=== PATIENT | female | born 1940 | race Caucasian/White ===

== ENCOUNTER 2016-05-25 14:00 | Inpatient (IN) | payer MEDICARE, BC ==
[~2016-05-25] VITALS: Ht 162.6 cm; Wt 126.2 kg
--- NOTE | ~2016-05-25 | DS ---
PATIENT'S NAME: JENNY OBRIEN [facility] AGE: 75 Y [address] ROOM: [id number] [place] [address] LOCATION: GPCU ADMIT DATE: 05/25/2016 Discharge Summary DISCHARGE DATE: 06/06/2016 FAMILY PHYSICIAN: Jarod Alegre MD ATTENDING PHYSICIAN: Bert Valladares FINAL DIAGNOSES: 1. 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 2. Acute on chronic diastolic congestive heart failure. 3. Bilateral lower extremity cellulitis. 4. Severe pulmonary hypertension with right-sided failure. 5. Acute kidney injury on stage 3 chronic kidney disease. 6. Atrial fibrillation. 7. Left leg ulcers currently in unna boot. 8. Nocturnal hypoxia. Question if she has untreated obstructive sleep apnea. 9. Long-term anticoagulation. 10. Elevated troponins. HISTORY OF PRESENT ILLNESS: Please see the history and physical done by Dr. Valladares regarding the details of admission. LABORATORY DATA: On admission pH was 7.18, pCO2 98, pO2 88 on 4 L 94% O2 saturation. The morning on 06/05/2016, pH 7.42, pCO2 54, pO2 59, O2 saturation 91% on room air. Sodium on admission was 146, remained stable and on discharge 137. Potassium on admission was 4.6 and at discharge 4.2, the lowest it got was 3.3. BUN on admission was 38, the highest it got was 40, at discharge 59. Creatinine on admission was 1.8, the highest it got was 1.9, most prior to discharge, it was 1.4. On admission, alkaline phosphatase 77, AST 44, ALT 35, magnesium most prior to discharge was 2.7. Troponin on admission was 1.23, did decline to 1.02 and then 0.52. Digoxin on admission was 2.26. ProBNP on admission was 31,781. TSH was 5.18. White blood cell count on admission was 6.7 and discharge 4.2. Hemoglobin on admission was 13.7 and discharge 15.2. Platelet count on admission was 228 and discharge 174. ProTime on admission was 76.4 with an INR of 6.2. Most prior to discharge ProTime 32.3 with an INR of 2.8. Procalcitonin on admission was 0.09. Influenza A and B were negative. Urinalysis on admission had 250 blood, 2-5 whites, 20-50 rbc's. MICROBIOLOGY DATA: Negative. RADIOLOGY: Chest x-ray on admission showed that she did have vascular congestion. Repeat chest x-ray on the 05/29/2016 showed improvement. CARDIOVASCULAR DATA: Echocardiogram showed that her ejection fraction was PATIENT'S NAME: JENNY OBRIEN [facility] AGE: 75 Y [address] ROOM: [place] [address] LOCATION: GPCU ADMIT DATE: 05/25/2016 Discharge Summary DISCHARGE DATE: 06/06/2016 FAMILY PHYSICIAN: Jarod Alegre MD ATTENDING PHYSICIAN: Bert Valladares felt to be normal. She had mild to moderate concentric left hypertrophy, dilated left atrium. Bilateral lower extremity venous Dopplers were negative for DVT. Arterial studies did not show any evidence of arterial obstruction. HOSPITAL COURSE: The patient was admitted with acute hypoxic hypercapnic respiratory failure and it was felt to be a chronic component to this as well. She was admitted into the intensive care unit and put on BiPAP and eventually switched to an AVAPS. She was prophylactically started on IV cefepime. Cardiology and Vascular did see her. She did do very well. She did tolerate the BiPAP. Walk was asked to see her because of her lower extremity ulcerations. Venous Dopplers were negative. On the second hospital day, she was changed to the AVAPS and really tolerated it quite nicely. She was started on IV Lasix and she diuresed significant amount of fluid. Vascular did see her and did not feel that she needed to have any sort of surgical intervention. When her cultures came back negative, it was felt that she was dealing primarily with cellulitis. She was changed from the IV cefepime to cefazolin. PT and OT were asked to see her. Speech Therapy evaluated her. She was improving significantly. She was able to be taken out of the ICU and on admitted on to PCU. Walk nurses eventually did feel that she may benefit from unna boot. Her kidney function and electrolytes were monitored closely. Her potassium and magnesium were replaced as necessary. Dr. Toussaint did add Aldactone and Diamox. On admission, she did have elevated troponins and it was felt that she would need to have a stress test prior to discharge. She did get to a point where she was not diuresing as much, that time Dr. Toussaint did place her on a Lasix drip which really did precipitate a larger diuresis. Stress test was ordered. She did undergo a stress test on the 06/04/2015 which showed that she had fixed defect. There were no reversible findings. She was weaned off oxygen in day, but was still requiring oxygen at night. The overall feeling was that she did have severe pulmonary hypertension from probably undiagnosed and untreated sleep apnea. She was planning to go to a skilled facility. The decision was made to place her on oxygen at 2 L at night and then prior to discharge from the shelter facility to have an overnight trend ox. I did discuss this with Dr. Alegre her primary care provider and he did agree with the plan. The patient will be transferred to [facility] on the morning of 06/06/2016. DISCHARGE INSTRUCTIONS: 1. On 1750 mL fluid restriction. 2. Weightbearing as tolerated. 3. Oxygen at 2 L per nasal cannula at night, off in the morning. The night prior to discharge she will need an overnight trend oximetry on room air. 4. She will have renal panel, mag and her ProTime drawn on 06/08/2016. 5. She will have unna boot on the left leg. It was placed on 06/04/2016 and will need to be changed in 1 week. PATIENT'S NAME: JENNY OBRIEN [facility] AGE: 75 Y [address] ROOM: [place] [address] LOCATION: GPCU ADMIT DATE: 05/25/2016 Discharge Summary DISCHARGE DATE: 06/06/2016 FAMILY PHYSICIAN: Jarod Alegre MD ATTENDING PHYSICIAN: Bert Valladares DISCHARGE MEDICATIONS: 1. Diamox 250 mg daily. 2. Digoxin 62.5 mcg daily. 3. Lipitor 20 mg daily. 4. Lasix 40 mg daily. 5. Lopressor 25 mg twice daily. Hold if her systolic blood pressure is less than 120. 6. Nystatin powder to affected areas stop when resolved. 7. Protonix 40 mg daily. 8. MiraLax 17 g twice daily. 9. Aldactone 25 mg daily. 10. Coumadin 6 mg daily. 11. Tylenol 650 mg every 4 hours as needed for pain. 12. Imodium 4 mg daily for diarrhea. 13. Ultram 50 mg every 6 hours as needed. 14. DuoNeb treatments every 2 hours as needed for shortness of breath. PROGNOSIS: Overall prognosis at discharge is fair. I did speak with Dr. Alegre. SHIN BRIAN MD LAW/modl /[id number] CC: MD Jarod Crockett MD d: 06/06/1607 t: 06/06/16 165, DISCHARGE SUMMARY
--- NOTE | ~2016-05-25 | ENPV ---
Vascular Lower Extremities DVT Study Procedure Demographics Patient Name JENNY OBRIEN Date of Study 05/25/2016 Patient Number [id number] Gender Female Date of 1940 Age 75 Visit Number [id number] Height 64 Accession Number [id number] Weight 306.01 Referring Breana Escobedo Interpreting Obi Hughes MD Physician Physician Jacquelyn Morgan MD Physician Ordering Breana Escobedo Personalized Living Assistant Physician Administrative Services Manager Kendell Grewal T Conclusions Summary No evidence of deep vein thrombosis or superficial thrombophlebitis in the lower extremities bilaterally . Procedure Type of Study: Veins:Lower Extremities DVT Study, Venous Duplex Lower Extremity Bilateral. Indications for Study:Previous DVT. Appropriate Use Criteria:9 Allergies - No known allergies. Patient Status:Routine. Study Location:Inpatient Portable. Technical Quality:Adequate visualization. Velocities are measured in cm/s ; Diameters are measured in cm Right Lower Extremities DVT Study Measurements Right 2D and Doppler Measurements + + + + +------+------+ + !Location !Visualized!Compressibility!Thrombosis!Signal!Reflux!Reflux ! ! ! ! ! ! ! !(sec) ! + + + + +------+------+ + !GSV Thigh !Yes !Yes !None !Phasic!No ! ! + + + + +------+------+ + !Common !Yes !Yes !None !Phasic!No ! ! !Femoral ! ! ! ! ! ! ! + + + + +------+------+ + !Prox !Yes !Yes !None !Phasic!No ! ! !Femoral ! ! ! ! ! ! ! + + + + +------+------+ + !Mid Femoral!Yes !Yes !None !Phasic!No ! ! + + + + +------+------+ + !Dist !Yes !Yes !None !Phasic!No ! ! !Femoral ! ! ! ! ! ! ! + + + + +------+------+ + !Popliteal !Yes !Yes !None !Phasic!No ! ! + + + + +------+------+ + !Gastroc !Yes !Yes !None !Phasic!No ! ! + + + + +------+------+ + !PTV !Yes !Yes !None !Phasic!No ! ! + + + + +------+------+ + !Peroneal !Yes !Yes !None !Phasic!No ! ! + + + + +------+------+ + Left Lower Extremities DVT Study Measurements Left 2D and Doppler Measurements + + + + +------+------+ + !Location !Visualized!Compressibility!Thrombosis!Signal!Reflux!Reflux ! ! ! ! ! ! ! !(sec) ! + + + + +------+------+ + !GSV Thigh !Yes !Yes !None !Phasic!No ! ! + + + + +------+------+ + !Common !Yes !Yes !None !Phasic!No ! ! !Femoral ! ! ! ! ! ! ! + + + + +------+------+ + !Prox !Yes !Yes !None !Phasic!No ! ! !Femoral ! ! ! ! ! ! ! + + + + +------+------+ + !Mid Femoral!Yes !Yes !None !Phasic!No ! ! + + + + +------+------+ + !Dist !Yes !Yes !None !Phasic!No ! ! !Femoral ! ! ! ! ! ! ! + + + + +------+------+ + !Popliteal !Yes !Yes !None !Phasic!No ! ! + + + + +------+------+ + !Gastroc !Yes !Yes !None !Phasic!No ! ! + + + + +------+------+ + !PTV !Yes !Yes !None !Phasic!No ! ! + + + + +------+------+ + !Peroneal !Yes !Yes !None !Phasic!No ! ! + + + + +------+------+ + Signature dtt: SUBHA NATH dtd: 05/25/16 1650 Physician Micah Echevarria
--- NOTE | ~2016-05-25 | ENPV ---
Vascular Lower Extremities Arterial Duplex and Lower Arterial Plethysmography Procedure Demographics Patient Name JENNY OBRIEN Date of Study 05/28/2016 Patient Number [id number] Gender Female Date of 1940 Age 75 Visit Number [id number] Height 64 Accession Number [id number] Weight 306.01 Referring Obi Hughes MD Interpreting Obi Hughes MD Physician Physician Physician Ordering Physician Obi Hughes MD Cleaner Housekeeping Card Lacer Rao Byrd [facility] Conclusions Summary Duplex imaging of the left leg reveals no significant peripheral arterial disease . Duplex imaging of the right leg reveals no significant peripheral arterial disease . Waveforms in the right lower extremity were triphasic in the common femoral and superficial femoral artery, biphasic at the popliteal artery, and multiphasic at the distal dorsalis pedalis and posterior tibial artery. Waveforms in the left lower extremity were triphasic throughout. AMBER suggests no significant obstruction. Procedure Type of Study: Extremities Arteries:Lower Extremities Arterial Duplex, Arterial Duplex Lower Extremity Bilateral, Lower Arterial Plethysmography, Ankle Brachial Index NH. Indications for Study:Reduced/Absent pulses. Allergies - No known allergies. Patient Status:Routine. Study Location:Inpatient Portable. Technical Quality:Adequate visualization. Velocities are measured in cm/s ; Diameters are measured in cm Pressures + ++--------+-----+----+--------+-----+ ! !!Right ! !Left! ! ! + ++--------+-----+----+--------+-----+ !Location !!Pressure!Ratio! !Pressure!Ratio! + ++--------+-----+----+--------+-----+ !Ankle !!125 !1.04 ! !140 !1.17 ! + ++--------+-----+----+--------+-----+ !Ankle PT !!119 !0.99 ! !138 !1.15 ! + ++--------+-----+----+--------+-----+ !DP !!125 !1.04 ! !140 !1.17 ! + ++--------+-----+----+--------+-----+ !Great Toe !!76 !0.63 ! !98 !0.82 ! + ++--------+-----+----+--------+-----+ - Brachial Pressure:Right: 120.Left:119. - AMBER:Right: 1.04.Left: 1.17. Plethysmographic Digit Evaluation +---------++--------+-----+ ++--------+-----+ + ! !!Right ! !Left !! ! ! ! +---------++--------+-----+ ++--------+-----+ + !Location !!Pressure!Ratio!PPG Wave Form !!Pressure!Ratio!PPG Wave Form ! +---------++--------+-----+ ++--------+-----+ + !Great Toe!!76 !0.63 ! !!98 !0.82 ! ! +---------++--------+-----+ ++--------+-----+ + Velocities are measured in cm/s ; Diameters are measured in cm LE Duplex Measurements + ++-----+ +----+---+ + ! !!Right! !Left! ! ! + ++-----+ +----+---+ + !Location !!PSV !Wave Desc. ! !PSV!Wave Desc. ! + ++-----+ +----+---+ + !Femoral !!162 !Triphasic ! !128!Triphasic ! + ++-----+ +----+---+ + !PFA !!115 !Triphasic ! !42 !Triphasic ! + ++-----+ +----+---+ + !Prox SFA !!103 !Triphasic ! !120!Triphasic ! + ++-----+ +----+---+ + !Mid SFA !!109 !Triphasic ! !81 !Triphasic ! + ++-----+ +----+---+ + !Dist SFA !!100 !Triphasic ! !99 !Triphasic ! + ++-----+ +----+---+ + !Prox Popliteal !!120 !Biphasic ! !69 !Triphasic ! + ++-----+ +----+---+ + !Dist Popliteal !!100 !Biphasic ! !98 !Triphasic ! + ++-----+ +----+---+ + !Dist TRANSPORT OPERATIONS INSPECTOR !!127 !Multiphasic! !80 !Triphasic ! + ++-----+ +----+---+ + !DP !!168 !Multiphasic! !116!Triphasic ! + ++-----+ +----+---+ + Signature dtt: SUBHA NATH dtd: 05/28/16 0748 Physician Self Edit
--- NOTE | ~2016-05-25 | CON ---
PATIENT'S NAME: JENNY OBIREN [facility] AGE: 75 Y [address] ROOM: [id number] [place], [place] [address] LOCATION: GICU ADMIT DATE: 05/25/2016 Consultation DISCHARGE DATE: FAMILY PHYSICIAN: PHYSICIAN, UNKNOWN ATTENDING PHYSICIAN: OZ RUFFIN DATE OF CONSULTATION: 05/25/2016 REFERRING PHYSICIAN: Fanny Toussaint MD Patient of Dr. Jarod Alegre. HISTORY OF PRESENT ILLNESS: Mrs. Obrien is a 75-year-old female patient who went to see her physician in [facility], who is Dr. Jarod Alegre. She has not been feeling well for about 3 to 4 days and extremely fatigued and short of breath. She was somnolent in the waiting area and was hypoxic, and she had digital cyanosis. She had 2 L of oxygen applied to her and she was transferred over by ground ambulance because her troponins are elevated. The patient has not been well for at least two months or so. It may be possible that she was reasonably well at [facility]. Her in September of 2015 from renal failure. Somewhere within the past 1 to 2 months she has started to notice worsening fatigue and some shortness of breath with exertion which has now progressed to the point where she is now short of breath at rest. She is in functional class 4 now. There has been times when she has paroxysmal nocturnal dyspnea for the past month or so. She also has been sleeping in a recliner for the past month or more. She has no chest discomfort of any kind. She denies lightheadedness, dizziness, syncope, or presyncope. She has had atrial fibrillation for a number of years since at least 2007. Her ankles have been swelling up for months to years. She has history of hypertension. She denies diabetes. Her lipids are known to be elevated. She never smoked, and there is no family history of premature coronary artery disease. She has never had any rheumatic fever. She has been diagnosed with congestive heart failure in the past and she has been diagnosed with atrial fibrillation since 2007 and she has been on Coumadin ever since. The patient has a history of systolic and diastolic congestive heart failure. She had a catheterization in [address] Aquino who found a 50% lesion in the proximal LAD in 2013. Circumflex was okay and the right coronary artery could not be found on the catheterization study. Her LVEDP at that time was only 11. Her last EF by echo report in 2013 was 35% or so. It does appear as if she has been lost to followup since then. She may have seen Dr. Clark in [place] at some point as well. PATIENT'S NAME: JENNY OBRIEN [facility] AGE: 75 Y [address] ROOM: [id number] [place] [id number] LOCATION: [facility] ADMIT DATE: 05/25/2016 Consultation DISCHARGE DATE: FAMILY PHYSICIAN: PHYSICIAN, UNKNOWN ATTENDING PHYSICIAN: OZ RUFFIN MEDICATIONS: 1. Atorvastatin 20 mg a day. 2. Coumadin 3 mg a day. 3. Digoxin 0.25 mg once a day. 4. Furosemide 40 mg a day. 5. Metoprolol 75 mg b.i.d. ALLERGIES: NO KNOWN DRUG ALLERGIES. PAST MEDICAL HISTORY: 1. Moderate mitral regurgitation by echocardiogram. 2. History of cholecystectomy. 3. Knee replacement. 4. Ureteral stent placement. 5. Arthroscopy of the knee. 6. Tonsillectomy. SOCIAL HISTORY: The patient lives at home. She denies abusing alcohol. Her appetite and weight have been fair. Sleep is poor. FAMILY HISTORY: No premature coronary artery disease. REVIEW OF SYSTEMS: A 12-point review of systems revealed the following positives. 1. It appears as if she may have had sleep apnea diagnosed, but she could not tolerate the mask. 2. Corrective lenses. 3. Influenza A in July of 2015. 4. Cholecystectomy. 5. CKD. 6. DJD. PHYSICAL EXAMINATION: GENERAL: The patient is in no acute distress. She denies any pain. She is on 2 L of oxygen and her saturations are in the 96% range. Blood pressure is 130s over 70s in her right forearm. Her heart rate is 60s and irregular. Respirations are 18. Afebrile. HEENT: Normal. NECK: Supple with no JVD, thyromegaly, lymphadenopathy, or carotid bruit. PMI is not well located. First and second heart sounds are irregular. There are no added sounds or murmurs. CHEST: Clear to auscultation. PATIENT'S NAME: JENNY OBRIEN [facility] AGE: 75 Y [address] ROOM: [id number] [place], [place] [address] LOCATION: [facility] ADMIT DATE: 05/25/2016 Consultation DISCHARGE DATE: FAMILY PHYSICIAN: PHYSICIAN, UNKNOWN ATTENDING PHYSICIAN: OZ RUFFIN ABDOMEN: Obese, soft. EXTREMITIES: Reveal 3 to 4+ edema. There is some red area over the left lower extremity which is consistent with having an infected area. CENTRAL NERVOUS SYSTEM: Intact. ASSESSMENT: A 75-year-old female patient with hypertension, elevated cholesterol, who has known coronary artery disease by cardiac catheterization in 2013. She had congestive heart failure and decreased EF of about 35% in 2014. However, the status of her right coronary artery is unknown at this time. The patient has chronic atrial fibrillation, on Coumadin therapy, which makes it very unlikely that pulmonary embolism is a problem even though it cannot be completely eliminated. She also is a nonsmoker which makes it unlikely that she has significant COPD. She is at least moderately obese. RECOMMENDATION: We will get a digoxin level and also hold her digoxin and get her Coumadin held for the time being. If the INR is less than 2, we will start her on heparin and put her on Lasix infusion and have Nephrology see her in consultation. The hospitalist is also going to be following her for her respiratory failure. Again, I appreciate this opportunity to participate in the care of Mrs. Obrien. MD MORA MARSHALL/og /[id number] d: 05/25/16 2332 t: 06/12/16 1326, CONSULTATION REPORT
--- NOTE | ~2016-05-25 | HP ---
PATIENT'S NAME: JENNY OBRIEN [facility] AGE: 75 Y [address] ROOM: [id number] [place], [place] [address] LOCATION: [facility] ADMIT DATE: 05/25/2016 History & Physical DISCHARGE DATE: FAMILY PHYSICIAN: PHYSICIAN, UNKNOWN ATTENDING PHYSICIAN: OZ RUFFIN DATE OF SERVICE: CHIEF COMPLAINT: Shortness of breath and bilateral lower extremity worsening edema and mottling. HISTORY OF PRESENT ILLNESS: This is a 75-year-old female, who lives alone at home by herself, who is a poor historian and very nonspecific about her history. The most I could get out from her is that she has been having on and off worsening exertional dyspnea for the last 2-3 months and has been progressively getting worse. She also complains of some occasional on and off exertional chest pain, but also sometimes has chest pain at rest for the last few months as well. She could not really tell me when was the last time she felt this chest pain. However, she denies any chest pain today or yesterday. She states that her legs are always swollen for a long time and has been getting worse for the last 3 months, and she noticed that her legs are becoming mottling and her bilateral feet also turning purple roughly since the last 2 weeks. She denies any pain whatsoever in her bilateral lower extremities. She also denies any fever or chills or any cough or any palpitation or any sick contact or any other complaints. She says her appetite has also been poor recently, but she could not really tell me if she has a decreased urine output or not. She was seen at the outside facility because of all these problems, and cardiac enzymes were performed, showed elevation of the troponin, CK, and CK- MB. EKG was unremarkable, and the patient was also found to be hypoxic requiring oxygen, and because of the mottling of both feet and the worsening edema, the patient was transferred here for higher level of care. Her troponin-I was found to be at 1.093, and the proBNP was elevated at 23,790 and the CPK was 685 and CK-MB was 7.3. White blood cell was normal. Kidney function also shows worsening with LASHONDA on CKD stage 3, the creatinine was found to be at 2.0. GFR was 25. Potassium was normal at 4.3. D-dimer was also normal. REVIEW OF SYSTEMS: As mentioned in the history of present illness. All other systems reviewed and negative except for those mentioned in history of present illness. PATIENT'S NAME: JENNY OBRIEN [facility] AGE: 75 Y [address] ROOM: [id number] [place], [place] [address] LOCATION: GICU ADMIT DATE: 05/25/2016 History & Physical DISCHARGE DATE: FAMILY PHYSICIAN: PHYSICIAN, UNKNOWN ATTENDING PHYSICIAN: OZ RUFFIN PAST MEDICAL HISTORY: 1. History of atrial fibrillation, at home on anticoagulation with Coumadin. 2. Coronary artery disease with a history of nonischemic cardiomyopathy with NSTEMI in the past. 3. Hypertension. 4. CKD stage 3, baseline GFR 49. 5. History of a DVT in the past. 6. Hyperlipidemia. 7. Combined systolic and diastolic congestive heart failure. 8. Most recent echo on our [facility] was in 2013. At that time, it showed an EF of 30% to 35% with severe diastolic dysfunction and moderate mitral regurgitation and mild to moderate pulmonary hypertension. 9. Obstructive sleep apnea. 10. Peptic ulcer disease in the past. 11. Morbid obesity. ALLERGIES: NO KNOWN DRUG ALLERGIES. HOME MEDICATIONS: Currently has been reconciled. SOCIAL HISTORY: The patient denies any alcohol or illegal drug or cigarette smoking. FAMILY HISTORY: Father has some kind of heart disease, but the patient could not tell me other details. The patient denies any cardiac history in her mother. She could not tell me any more family medical history because she states she could not remember. PAST SURGICAL HISTORY: 1. Status post tonsillectomy. 2. Status post left total knee arthroplasty. PHYSICAL EXAMINATION: VITAL SIGNS: At the time of my dictation, temperature 97.4, heart rate 80, respirations 25, blood pressure 131/77, saturation 93% on 5 L nasal cannula. Pain 0/10. GENERAL APPEARANCE: Alert and oriented x3, in mild respiratory distress. The patient looks frail and chronically ill and elderly. HEENT: Pupils are equally round and reactive to light. Extraocular muscles are intact. Nasal turbinates are normal bilaterally. Moist oral mucosa. No oral thrush. NECK: Difficult to assess JVD due to her morbid obesity. No carotid bruits. PATIENT'S NAME: JENNY OBRIEN [facility] AGE: 75 Y [address] ROOM: [id number] [place], [place] [address] LOCATION: [facility] ADMIT DATE: 05/25/2016 History & Physical DISCHARGE DATE: FAMILY PHYSICIAN: PHYSICIAN, JOSE D ATTENDING PHYSICIAN: OZ RUFFIN No cervical lymphadenopathy. Cardiovascular: Faint heart sounds. Irregularly irregular rate and rhythm. Could not appreciate obvious murmur, rubs, or gallops. RESPIRATORY: Decreased sounds diffusely with bibasilar crackles. ABDOMEN: Obese, soft, nontender, nondistended, normal bowel sounds, no hepatosplenomegaly. EXTREMITIES: Mottling in the bilateral triceps area and bilateral lower extremities, all the way from bilateral thighs to bilateral calves. Her both feet are cold to touch and also cyanotic. There is no gangrene. The feet do not look necrotic. Dorsalis pedis pulse and posterior tibialis pulse could not be felt with the finger. However, using Doppler, I could feel the dorsalis pedis pulse and the posterior tibialis pulse on the right foot, but weak, and on the left foot, I could only find the posterior tibialis pulse, but I could not find the dorsalis pedis pulse with the Doppler. There is no pain to palpation in bilateral lower extremities. She also has anasarca. There are two superficial skin ulcers on the left anterior callus, and they do not look infected. It is very superficial. No finding to suggest cellulitis. NEUROLOGICAL: Grossly nonfocal. SKIN: She does have candidal intertrigo below her both breasts and bilateral groin skin folds and also as mentioned in the extremity section. LABORATORY DATA: Laboratory data from the outside facility shows sodium 145, potassium 4.3, chloride 104, CO2 of 33.2, anion gap 7.8, glucose 95, BUN 37, creatinine 2.0, GFR 25, calcium 8.6, total bilirubin 2.7. Alkaline phosphatase 93, AST 56, ALT 44. Total protein 6.5, albumin 3.4. D-dimer 128.1. Urinalysis negative for UTI. White blood cell 5.7, hemoglobin 15.2, hematocrit 50.1, MCV 90.8, platelets 220. IMAGING STUDIES: EKG on admission over there showed atrial fibrillation with a heart rate of 59. ASSESSMENT/PLAN: 1. Acute hypoxemic respiratory failure secondary to acute on chronic combined systolic and diastolic heart failure in the setting of volume overload: Cardiology consult. Dr. Toussaint already saw the patient, and please refer to his dictation for details. We will continue with IV Lasix drip, and we will check potassium tonight to make sure it does not fall below 4. We will also keep the magnesium above 2. Oxygen nasal cannula, keep the saturation more than 94%. We will check echo. We will check digoxin level. Check serial cardiac enzymes. I am not going to start any antibiotics. The patient does not look septic. There is no leukocytosis. There is no cough. There is no symptom and clinical finding to suggest pneumonia. Her lactic acid was also normal and PATIENT'S NAME: JENNY OBRIEN [facility] AGE: 75 Y [address] ROOM: [id number] [place] [id number] LOCATION: [facility] ADMIT DATE: 05/25/2016 History & Physical DISCHARGE DATE: FAMILY PHYSICIAN: PHYSICIAN, UNKNOWN ATTENDING PHYSICIAN: OZ RUFFIN procalcitonin was also normal. The acute hypoxemic respiratory failure is from the acute on chronic combined systolic and diastolic heart failure. 2. Regarding her troponin elevation: Most likely secondary to acute on chronic combined systolic diastolic heart failure. Either way, her INR is already supratherapeutic. There is no bleeding. There is no need to reverse the INR urgently. We will just hold the Coumadin tonight and check INR tomorrow. INR was 6.2 here on admission. Check serial cardiac enzymes. Check a proBNP in the morning again. The patient will be getting aspirin, Lipitor, and Lopressor. Given if she was having acute coronary syndrome, she is already treated right now with the ACS protocol. She has no chest pain; therefore, nitroglycerin is not needed. Further plan depends on clinical course. 3. Regarding her bilateral lower extremity edema and mottling and cyanosis: Could be from lack of perfusion from the acute on chronic combined systolic and diastolic heart failure. Her extremities are cool to touch. Could not get a pulse on the left posterior tibialis even with using Doppler. There is no gangrene or necrosis. I have already contacted Dr. Crocker given that her kidney function is acute kidney injury on chronic kidney disease. CT angiogram will not be the best choice right now, and from the story and physical examination, most likely this is from the low perfusion from the heart failure. There is no urgency per Vascular Surgery standpoint at the moment given that there is no gangrene, there is no necrosis, there is no pain. Vascular Surgery will evaluate the patient in the morning. I agree with the plan. We will get a venous duplex ultrasound of the bilateral lower extremities to rule out deep venous thrombosis. INR is already supratherapeutic; therefore, she is already covered. Further plan depends on clinical course. 4. Regarding her acute kidney injury on chronic kidney disease: Likely this is cardiorenal. Continue with IV Lasix drip. Follow up with basic metabolic panel in the morning. Further plan depends on clinical course. If her kidney function worsens despite the diuretics, then we can consider about doing a kidney ultrasound and urine electrolytes, but based on the picture right now, this is most likely consistent with cardiorenal syndrome. 5. Code status: She is a DNR, but not DNI. 6. DVT prophylaxis: INR is already supratherapeutic. Time spent in care 60 minutes including chart review, interviewing and examining the patient, addressing all the questions and concerns that the patient had, and going over the plan of care with the patient and the ICU nurses. OZ RUFFIN MD PATIENT'S NAME: JENNY OBRIEN [facility] AGE: 75 Y [address] ROOM: [place] [address] LOCATION: [facility] ADMIT DATE: 05/25/2016 History & Physical DISCHARGE DATE: FAMILY PHYSICIAN: PHYSICIAN, UNKNOWN ATTENDING PHYSICIAN: OZ RUFFIN CC/modl /[id number] D: T: HISTORY & PHYSICAL
--- NOTE | ~2016-05-25 | ECHO ---
Transthoracic Echocardiography Report (TTE) Demographics Patient Name JENNY OBRIEN Date of Study 05/25/2016 Patient Number [id number] Visit Number [id number] Date of 1940 Room Number G6205 Gender Female Number Age 75 year(s) Referring Breana Escobedo Policy Manager Kendell Grewal RVT Physician MD Jacquelyn Morgan MD Physician Interpreting Breana Escobedo Sterile Technician Physician Supervising Ordering Breana Escobedo MD/MLP Physician Nurse Stress [employer] T[employer] Builder Conclusions Summary Technically difficult exam. Mild to moderate concentric left ventricular hypertrophy with normal internal dimensions,EF and WM.Flattened septum during systole and diastole indicate pressure and volume overloaded RV. Mildly dilated LA. Trivial MR. Moderately dilated RHCs. Moderate RV hypokinesia. Increased RA pressures. Moderate tricuspid regurgitation by color Doppler. There is severe pulmonary hypertension. The pulmonary pressure (RVSP) is 77 mmHg. Very small clinically insignificant pericardial effusion Procedure Type of Study TTE procedure:2D Echocardiogram, M-Mode, Doppler , Color Doppler. Procedure Date Date: 05/25/2016 Start: 04:13 PM Study Location: Inpatient Portable Technical Quality: Limited visualization due to body habitus. Indications:Elevated Troponin. Appropriate Use Criteria: 9 Patient Status: Routine HR: 81 bpm BP: 131/69 mmHg Allergies - No known allergies. M-Mode/2D Measurements LV Diastolic Dimension: 4.16 cm LV Systolic Dimension: 2.79 cm LV Septum Diastolic: 1.58 cm LV PW Diastolic: 1.61 cm AV Cusp Separation: 1.7 cm Cardiac Output: 3.37 l/min LA Dimension: 4.65 cm LVOT: 1.9 cm LVOT VTI: 14.7 cm RV Base: 3.29 cm LV Stroke volume: 41.66 ml RV Length: 957 cm TAPSE: 1.13 cm TDI-S': 11.2 cm/s Doppler Measurements AV Peak Velocity: 1.38 m/s MV Peak E-Wave: 1.09 m/s AV Peak Gradient: 7.62 mmHg AV Mean Gradient: 4 mmHg MV P1/2t: 61 msec LVOT Peak Velocity: 0.72 m/s TR Velocity:3.94 m/s PV Peak Velocity: 0.66 m/s TR Gradient:62.09 mmHg PV Peak Gradient: 1.75 mmHg Estimated RAP:15 mmHg Estimated PASP: 77.09 mmHg Estimated RVSP: 77 mmHg A' Septal Velocity: 0.04 m/s E' Septal Velocity: 0.06 m/s A' Lateral Velocity: 0.03 m/s E' Lateral Velocity: 0.1 m/s Findings Left Ventricle Mild to moderate concentric left ventricular hypertrophy.Septum is flattened during systole and diastole consistent with pressure and volume overload of RV.LV internal dimensions,EF and WM are normal. Right Ventricle Moderately dilated right ventricle. Moderately reduced right ventricular function. Left Atrium Mildly dilated LA. Right Atrium The right atrium is moderately dilated. IVC measures 2.23 cm with no inspiratory collapse. Mitral Valve Trivial mitral regurgitation by color Doppler. Aortic Valve Normal aortic valve structure and function. Tricuspid Valve Mild tricuspid regurgitation by color Doppler. There is severe pulmonary hypertension. The pulmonary pressure (RVSP) is 77 mmHg. Pulmonic Valve The pulmonic valve is not well visualized. Pericardial Effusion Evidence of pericardial effusion measuring .65cm. Miscellaneous Visualized portions of the aortic root and ascending aorta appear normal in size. Pleural Effusion No evidence of pleural effusion. Contractility Score LV regional wall motion:(0-Non visualized 1-Normal 2-Hypokinesis 3-Akinesis 4-Dyskinesis 5-Aneurysm) Signature dtt: Fanny Toussaint dtd: 05/25/16 [id number] Physician Self Edit
--- NOTE | ~2016-05-25 | CON ---
PATIENT'S NAME: JENNY OBRIEN [facility] AGE: 75 Y [address] ROOM: [place] [address] LOCATION: GPCU ADMIT DATE: 05/25/2016 Consultation DISCHARGE DATE: 06/06/2016 FAMILY PHYSICIAN: Jarod Alegre MD ATTENDING PHYSICIAN: Mahnaz Ji dictating physician 06/12/16 AOREFERRING PHYSICIAN: Fanny Toussaint MD DICTATED FOR: Dr. Ji. HISTORY OF PRESENT ILLNESS: This pleasant 75-year-old lady is referred for rehab GIRT evaluation admitted on 05/25/2016 with dyspnea upon efforts, plus on and off shortness of breath when lying down for the last 2 months or so, progressively getting worse and with some chest tightness and edema of bilateral ankles getting worse progressively so. She also noticed that her leg skin is dark in color, bilateral, right side more. No pain, but she did tell me that she has been noticing that she has less urine output. MEDICAL HISTORY: 1. Atrial fibrillation, was on Coumadin. 2. Coronary artery disease, nonischemic cardiomyopathy. 3. Hypertension. 4. Stage III renal failure. 5. Hypertension with congestive heart failure. 6. History of DVT. 7. Sleep apnea. 8. Peptic ulcer disease. 9. Obesity. 10. Status post left total knee arthroplasty. 11. Tonsillectomy. SOCIAL HISTORY: Does not smoke. Does not drink. PHYSICAL EXAMINATION: VITAL SIGNS: Blood pressure 123/70, temperature 98.0, pulse 95, respirations 20, she is 5 feet 4 inches, and weighs 130.7 kg. GENERAL: Alert and oriented x3. At the present time, she can comprehend, express without difficulty. Her voice is clear and not wet. There is no weakness that I could detect. MUSCULOSKELETAL: Generally, she has a muscle strength of about 4- to 4 throughout. PATIENT'S NAME: JENNY OBRIEN [facility] AGE: 75 Y [address] ROOM: [address] [address] LOCATION: GPCU ADMIT DATE: 05/25/2016 Consultation DISCHARGE DATE: 06/06/2016 FAMILY PHYSICIAN: Jarod Alegre MD ATTENDING PHYSICIAN: Mahnaz Ji EXTREMITIES: There is some edema in bilateral ankles still, can ambulate with front-wheeled walker and 3 L of oxygen with contact guard assistance. GI/: She is fairly continent of her bladder and bowel. ASSESSMENT AND PLAN: I feel that this lady is doing well. We will continue her on PT/OT and Speech, already initiated. I will ask for an incentive spirometer to be used q.1 hour when awake. Do an overnight trend oximetry. I will watch her. If she cannot go home and progress enough to do so, I will be glad to re-evaluate for rehab admission. All the above was explained to her in detail. She verbalized understanding. I will follow alongside with you. Thank you for this referral. MAGUI FRIED MD WMS/modl /[id number] Corrected dictating physician 06/12/16 AO d: 05/30/16 2331 t: 06/13/16 0844, CONSULTATION REPORT
--- NOTE | ~2016-05-25 | CON ---
PATIENT'S NAME: JENNY OBRIEN [facility] AGE: 75 Y [address] ROOM: [place] [address] LOCATION: GPCU ADMIT DATE: 05/25/2016 Consultation DISCHARGE DATE: FAMILY PHYSICIAN: Jarod Alegre MD ATTENDING PHYSICIAN: OZ RUFFIN DATE OF CONSULTATION: 05/28/2016 REFERRING PHYSICIAN: Dr. Lake. REASON FOR VISIT: Wound Care visit to evaluate and treat a left lower extremity ulcer. HISTORY OF PRESENT ILLNESS: This is a 75-year-old female patient who was admitted to [facility] with a CHF exacerbation and atrial fibrillation. The patient has significant history of systolic and diastolic congestive heart failure, atrial fibrillation, chronic kidney disease, obesity, obstructive sleep apnea, hypertension, hyperlipidemia, coronary artery disease, and history of a DVT. She is not diabetic. The patient has never had ulceration to her lower legs before. The current ulcers have been present for a couple of months. She admits applying a cream to the ulcers but is unable to tell me the name. She was told to wear gradient compression stockings but admits to only wearing them occasionally as they are hard to get on. She denies fevers, chills, or sweats. She admits to exertional dyspnea. She denies chest pain. She admits to lower leg edema. She reports a fair oral intake. The patient lives by herself in [place], [place]. PAST MEDICAL HISTORY: Systolic and diastolic congestive heart failure, chronic kidney disease, atrial fibrillation, obesity, obstructive sleep apnea, essential hypertension, hyperlipidemia, coronary artery disease, history of a DVT, cholecystitis, and osteoarthritis. PAST SURGICAL HISTORY: Left knee arthroplasty, bladder stents with removal, cholecystectomy, heart catheterization. FAMILY HISTORY: The patient's mother of congestive heart failure. SOCIAL HISTORY: The patient lives by herself in [place], [place]. She denies alcohol, tobacco, or illicit drug use. She is normally able to complete her activities of daily living at home. PATIENT'S NAME: JENNY OBRIEN [facility] AGE: 75 Y [address] ROOM: [place] [address] LOCATION: GPCU ADMIT DATE: 05/25/2016 Consultation DISCHARGE DATE: FAMILY PHYSICIAN: Jarod Alegre MD ATTENDING PHYSICIAN: OZ RUFFIN ALLERGIES: NO KNOWN MEDICATION ALLERGIES. CURRENT MEDICATIONS: 1. Fluconazole 50 mg daily. 2. Albuterol 2.5 mg q.i.d. 3. Cefazolin 1 g every 8 hours. 4. Furosemide 40 mg IV every 8 hours. 5. Metoprolol 25 mg p.o. b.i.d. 6. MiraLAX 17 g b.i.d. 7. Probiotic 250 mg b.i.d. 8. Nystatin topical powder t.i.d. 9. Protonix 40 mg daily. 10. Aspirin 325 mg daily. 11. Warfarin 5 mg daily. 12. Albuterol 2.5 mg as needed for shortness of breath. 13. Loperamide 4 mg every day p.r.n. REVIEW OF SYSTEMS: A 10-point review of systems was completed and all are negative except as mentioned above in the HPI. PHYSICAL EXAMINATION: VITAL SIGNS: Temperature 98.6, pulse 100, respirations 20, blood pressure 126/59, and pulse oximetry 96%. Height is 5 feet 4 inches and weight is 135.0 kg. GENERAL: The patient is alert and oriented x3, pleasant and cooperative with cares. In no acute distress. HEENT: Head: Normocephalic, atraumatic. Oral mucosa intact. NECK: Supple. No JVD noted. CARDIOVASCULAR: Regular rate and rhythm. ABDOMEN: Obese and nontender to palpation. EXTREMITIES: +2 pedal pulses. Extremities are warm to touch. +2 lower leg edema. Bilateral lower legs have red dermatitis. SKIN: To the patient's left lower anterior extremity, she has 2 oval shaped open ulcers. The medial ulcer measures 1.0 cm width x 0.5 cm length x 0.2 cm depth. Wound bed is mostly yellow slough, the margins have moist pink tissue. Periwound is intact with atrophie amy. There is a moderate amount of serous exudate noted. The lateral ulcer measures 1.0 cm width x 1.5 cm length x 0.2 cm depth. Wound bed is mostly yellow slough with scattered moist pink tissue throughout. Periwound is intact with atrophie amy. There is a moderate amount of serous exudate noted. No odor noted. No purulent exudate noted. No open ulcers to right lower extremity. Heels intact. Resolving redness noted to the patient's groin folds and left breast. The patient has a PATIENT'S NAME: JENNY OBRIEN [facility] AGE: 75 Y [address] ROOM: [id number] [place], [place] [address] LOCATION: GPCU ADMIT DATE: 05/25/2016 Consultation DISCHARGE DATE: FAMILY PHYSICIAN: Jarod Alegre MD ATTENDING PHYSICIAN: OZ RUFFIN small superficial circular area, a little larger than a quarter, underneath her right breast with satellite lesions noted. Buttocks intact with blanchable redness. LABORATORY DATA: White blood cell count 4.8, hemoglobin 12.6, hematocrit 43.2, platelets 161. Sodium 144, potassium 3.6, chloride 98, bicarb 40, BUN 34, creatinine 1.4, glucose 89, and albumin 2.8. INR 2.1. ASSESSMENT AND PLAN: Again, this is a very pleasant 75-year-old female patient who was admitted to [facility] with congestive heart failure exacerbation. Wound Care was consulted to evaluate and assess lower extremity venous ulcers. 1. Left lower extremity ulceration likely secondary to venous insufficiency and systolic and diastolic congestive heart failure. Arterial duplex was within normal limits. Deep venous thrombosis was ruled out. The patient has +2 pedal pulses, dependent edema, and her extremities are warm to touch. The patient would benefit from compression therapy. I did discuss with Dr. Ji. The [facility] RN applied Unna boot to the patient's left lower extremity. The patient was encouraged to elevate her legs throughout hospitalization and perform ankle/calf pump muscle exercises. Prior to discharge, we will have to decide where the patient will continue unna boot applications at, it will most likely be her primary care provider. 2. Candidiasis yeast infection to breast and groin folds. The patient is on nystatin powder t.i.d. I would suggest switching to ointment for better protection as she does have an open area underneath her right breast. She is also on Diflucan. 3. Pressure ulcer prevention. The patient was instructed on pressure redistribution measures and nursing is to turn her in bed q.2 hours. 4. Acute hypoxemic respiratory failure secondary to acute on chronic combined systolic and diastolic heart failure in the setting of fluid overload. Hospitalist is currently managing. Cardiology is on board. The patient is on Lasix. 5. Acute kidney injury on chronic kidney disease. Hospitalist is managing. I would like to thank Dr. Lake for this consultation. SERENA MORENO APRN FOR MD KANWAL GALVAN/og PATIENT'S NAME: JENNY OBRIEN [facility] AGE: 75 Y [address] ROOM: [place] [address] LOCATION: [facility] ADMIT DATE: 05/25/2016 Consultation DISCHARGE DATE: FAMILY PHYSICIAN: Jarod Alegre MD ATTENDING PHYSICIAN: OZ RUFFIN /[id number] d: 05/28/16 2343 t: 06/11/16 1159, CONSULTATION REPORT
--- NOTE | ~2016-05-25 | PUL ---
PATIENT'S NAME: JENNY [facility]RIEN [facility] AGE: 75 Y [address] ROOM: [address] [address] [facility] ADMIT DATE: 05/25/2016 Pulmonary DISCHARGE DATE: FAMILY PHYSICIAN: Jarod Alegre MD ATTENDING PHYSICIAN: OZ RUFFIN NAME OF PROCEDURE: Overnight Pulse Oximetry DATE OF PROCEDURE: May 252016 REASON FOR EXAM: Nocturnal hypoxemia RESULTS: The test was started on room air, but supplemental oxygen at 2 liters/minute was added approximately 5 minutes into the study. Subsequently, the oxygen was increased to 3 liters/minute. The recording time was 7 hours, 11 minutes and 24 seconds, with a total valid sampling time of 7 hours, 10 minutes, and 20 seconds. The highest pulse was 124, lowest pulse was 67, with a mean pulse of 95. The highest SpO2 was 99%, lowest SpO2 was 67%, with a mean SpO2 of 88.3%. The patient spent 3 hours, 43 minutes and 24 seconds with SpO2 less than 89%, representing 51.9% of the total sleep time. The desaturation event index was elevated at 11.3. PHYSICIAN INTERPRETATION: The patient has evidence of severe nocturnal hypoxia and would qualify for supplemental oxygen as per Medicare criteria. However, because of the severity of her nocturnal hypoxia with an elevated desaturation event index a sleep study is recommended at this time. CHANDNI RODRIGUEZ MD RFDuarte/karthik /[id number] dtt: 06/01/16 1522 , CHANDNI RODRIGUEZ dtd: 06/01/16 1106
--- NOTE | ~2016-05-25 | ESTC ---
Cardiac Perfusion Imaging Demographics Patient Name CAMILLE Wilkins Gender Female Patient Number [id number] Race Visit Number [id number] [place] [id number] Room Number G6315 Accession Number [id number] Height 64 inches Date of 1940 Weight 306 pounds Interpreting Breana Escobedo Date of study 06/04/2016 Physician Supervising /JOSE ALFRED Technologist Danny Fletcher APRN Ordering Physician Breana Escobedo Stress Maria De Jesus Valdez MD smog technician [facility] Stress ECG Reading Kael Fletcher APRN Nurse Rolando Ayala RN Physician Procedure Procedure Type: Nuclear Stress Test:Cardiolite Stress Test Procedure Start time: 06/04/2016 00:00 Indications: Heart Failure. Risk Factors The patient risk factors include:obesity, treated hypertension and prior ME . Conclusions Summary Medium sized fixed defect of moderate degree involving the entire septum with the basal third of the septum revealing moderate hypokinesia.Rest of the septum appear to move normally.Septal abnormalities most likely due to severe PHTN. Medium sized fixed defect involving the lateral wall of mild degree most consistent with soft tissue attenuation. LVEF:68%. Moderate hypokinesia involving the basal third of the septum as above. Stress Protocols Resting ECG Afib - Inverted T-waves in II, III, aVf, V1, V2, V3, V4, V5, V6 Pre-stress physical exam: Patient assessed by Thomas UNGER prior to testing. Chest - CTA Cardio - IRR, S1, S2 Predicted HR: 146 bpm HR response: Appropriate BP response: Appropriate Reason for termination:Infusion complete ECG Findings No further ECG changes suggestive of ischemia. Arrhythmias No rhythm abnormality. Symptoms No symptoms with Lexiscan infusion. Complications Procedure complication: None. Stress Interpretation Appropriate hemodynamic response to Lexiscan. No significant ST-T wave changes with Lexiscan. ECG portion is negative for ischemia by diagnostic criteria. Will correlate with nuclear images. Imaging Results High risk findings Summed scores - Summed stress score: 12 - Summed rest score: 22 - Summed difference score: -10 Stress ejection Ejection fraction:68 % EDV :75 ml ESV :24 ml Stroke volume :51 ml LV mass :111 gr RV size:Enlarged RV LV size:Normal Normal LV function Imaging Protocols Rest Stress Isotope:Tc99m Sestamibi IV Isotope: Tc99m Sestamibi IV Isotope dose:15 mCi Isotope dose:46.3 mCi Date:06/04/2016 06:48 Date:06/04/2016 08:27 Technique: SPECT Technique: Gated Supine SPECT Supine Scan Time:45-60 minutes post Scan Time:45-60 minutes post injection injection Procedure Medications - Regadenoson (Lexiscan) 0.4 mg IV over 10-15 sec. I.V. . Medical History Admission Data Admission date: 05/25/2016 Admission Time: 15:38 Hospital Status: Inpatient. Signatures dtt: Fanny Toussaint dtd: 06/04/[address] [facility] Physician Self Edit
[~2016-05-25 14:00] MED LIST: ASPIRIN (CHILDR81 MG PO; COUMADIN6 MG PO; DILTIAZEM 24HR180 M1; LASIX40 MG PO; LIPITOR20 M1 PO; LOPRESSOR50 MG PO; NORCO 5-325 MG1 TAB PO; PRINIVIL (ZESTRI5 MG PO; PROTONIX40 MG PO; TYLENOL325 MG PO
--- NOTE | 2016-05-25 15:45 | NUR ---
Patient admitted from [facility] with exacerbation of CHF and elevated cardiac enzymes. Patient is alert/oriented x3. Lives at home by herself, her recently in September of 2015 and she has kind of struggled ever since. She has had a 50lb weight gain over the last 2-3 months. Her legs have been purple for approximately the last 2 weeks. Patient states her daughter lives in another state and she doesn't really get a long with her son who lives in [place]. Patient wishes to be a DNR. A-fib on manager cardiac cath. SBP stable. Patient admitted as PCU status. Patient has to PIV. Robles catheter draining yellow clear urine. UA sent. Patient was very unclean upon arrival, and needed a bath to be able to assess the patient.
[2016-05-25] MEDS ORDERED: LANOXIN (DIGI250 MCG PO (16:50)
[2016-05-25] MEDS ORDERED: IMODIUM2 MG PO (16:51)
[2016-05-25 17:11] LABS: BILIRUBIN URINE NEGATIVE (NEGATIVE); BLOOD URINE 250 /UL (NEGATIVE); COLOR URINE YELLOW (YELLOW); GLUCOSE URINE NEGATIVE (NEGATIVE); KETONE URINE NEGATIVE (NEGATIVE); LEUKOCYTES URINE NEGATIVE /UL (NEGATIVE); NITRITE URINE NEGATIVE (NEGATIVE); PROTEIN URINE NEGATIVE (NEGATIVE); SPEC GRAVITY URINE 1.015 (1.003-1.035); TURBIDITY URINE CLEAR (CLEAR); UROBILINOGEN URINE NORMAL (NORMAL)
[2016-05-25 17:20] LABS: AMORPHOUS URINE 1+ (NEGATIVE); BACTERIA URINE RARE (NEGATIVE); RBC URINE 20-50 #/HPF (NEGATIVE)
[2016-05-25 17:51] LABS: PROTIME 76.4 SECONDS (9.6-11.1)
[2016-05-25 17:56] LABS: ANION GAP 11.6 (10.0-19.0); CALCIUM 8.3 mg/dL (8.5-10.5); CREATININE 1.8 mg/dL (0.5-1.1); POTASSIUM 4.6 mMol/L (3.7-5.1)
[2016-05-25 18:00] LABS: INR - (THERAPEUTIC) 6.2 (0.9-1.1)
[2016-05-26 03:16] LABS: BASOPHIL % 0.4 %; EOSINOPHIL % 0.1 %; HEMATOCRIT 48.5 % (33.0-46.0); HEMOGLOBIN 13.7 g/dL (10.0-15.0); IMMATURE GRANULOCYTE % 0.3 %; LYMPHOCYTE # 0.9 K/uL (0.8-4.0); LYMPHOCYTE % 13.3 %; MCHC 28.2 gm/dL (32.0-36.5); MCV 95.5 fl (83.0-98.0); MONOCYTE # 0.9 K/uL (0.0-1.0); MONOCYTE % 13.7 %; MPV 11.6 fl (9.4-12.4); NEUTROPHIL # (ANC) 4.8 K/uL (1.8-7.8); NEUTROPHIL % 72.2 %; NRBC % 0.6 /100WBC (0-0.00); PLATELET COUNT 228 K/uL (150-450); RDW-CV 15.8 % (11.9-14.6); WBC 6.7 K/uL (4.0-11.0)
[2016-05-26 03:22] LABS: RBC 5.08 M/uL (3.50-5.50)
[2016-05-26 03:35] LABS: PROTIME 86.5 SECONDS (9.6-11.1)
[2016-05-26 03:44] LABS: ANION GAP 12.8 (10.0-19.0); CALCIUM 8.1 mg/dL (8.5-10.5); CREATININE 1.9 mg/dL (0.5-1.1); POTASSIUM 4.8 mMol/L (3.7-5.1)
--- NOTE | 2016-05-26 05:56 | NUR ---
PT RESTING THROUGHOUT SHIFT. EPISODE OF HYPOTENSION AT 0200 LASTING FOR APPROX 1 HR. UOP DECREASED DURING THIS TIME. INFORMED AND EVALUATED PT. LASIX GTT STOPPED AT THIS TIME AND PT PLACED IN VASCULAR RESUSITATION POSITION WITH POSITIVE EFFECT. CEFIPIME STARTED AFTER BLOOD CULTURES OBTAINED. LOC DECREASED DURING EPISODE OF HYPOTENSION WELL. AT THIS TIME, PT IS A/O X3, BP NORMOTENSIVE, HR 100S, UOP 30 MLS/HR, GOOD PULSES. TRENDOX PERFORMED OVERNIGHT-WHEN PLACED ON RA, PATIENT'S SPO2 DROPPED TO 67% WITHIN MINUTES AND O2 REINITIATED. PT CURRENTLY ON 4L NC, SATS MID-HIGH 90S WHILE AWAKE, HAS PERIODIC DROPS DURING APNIC PERIODS IN WHICH SATS WILL DROP TO 70S-80S%. PULSES IN BLE IMPROVING, NOW ABLE TO BE PALPATED. LEGS CONTINUES TO BE PURPLE/MOTTLED. PT TURNED [id number]-FZ-CMCY Q2H. ALL LINES REMAINS INTACT AND PATENT. ROSALIO VIDALES RN
[2016-05-26 10:19] LABS: BICARBONATE 36.6 mmol/L (18.0-23.0); PO2 88 mmHg (80-90)
[2016-05-26 10:22] LABS: PCO2 98 mmHg (35-45)
[2016-05-26 13:47] LABS: BICARBONATE 36.9 mmol/L (18.0-23.0); PO2 88 mmHg (80-90)
[2016-05-26 13:49] LABS: PCO2 88 mmHg (35-45)
--- NOTE | 2016-05-26 15:46 | NUR ---
Pt placed on Bipap this AM, critical CO2 of 98. Started on Bipap 16/6 to achieve tidal volumes 400-500. Tolerated fair, but decreased tidal volumes when Pt slept. Zoning Engineer consulted, changed to AVAPS TV 520, MaxP 25, MinP 10, Epap 6, 40% Fio2. Started Alb UD txs. Will continue to monitor
[2016-05-26 16:11] LABS: ANION GAP 10.6 (10.0-19.0); CREATININE 1.9 mg/dL (0.5-1.1); POTASSIUM 4.6 mMol/L (3.7-5.1)
--- NOTE | 2016-05-26 17:05 | NUR ---
PT A/OX3 BUT MORE DROWSY THIS AFTERNOON (IMPROVED AFTER BIPAP PLACED). DENIES N/T, BLE AND FINGERTIPS MOTTLED BUT PULSES 1+. AFIB WITH CONTROLLED RATES 80-100'S, LOPRESSOR HELD D/T LOWER BP. LASIX CONTINUES Q6H IV WITH ADEQ RESPONSE VIA KITCHEN CATHETER. PT WAS -579 THIS SHIFT, NO BM, BS HYPO WITH BREAKFAST TOLERATED WELL AND DENIED N/V. BIPAP ON AVAPS YF=165 WITH LS HAVING FINE CRACKLES TO BILAT BASES AND DIM T/O BUT IMPROVING. ABG'S PCO2 98 DOWN TO 88, WITH FIO2 40% AT THIS TIME AND SATS UPPER 90'S. SBP 80-100'S, MAP >65. CEFEPIME CONTINUES FOR ABX COVERAGE, L) HAND IV S.L. ALONG WITH L) A/C. R) PIV INFILTRATED AND REMOVED. SM OPEN AREA X2 TO LLE WITH SM SEROUS DRNG. DENIES PAIN, AND TURNS Q2H WITH SOME HELP FROM PT.
--- NOTE | 2016-05-27 05:24 | NUR ---
PT CONTINUES ICU STATUS. REMAINS ON BIPAP THROUGHOUT SHIFT-OCCASIONALLY SWITCHED TO 3L NC FOR ORAL CARES; PT WOULD TOLERATE FOR APPROX 5-7 MINUTES BEFORE DROPPING SATS. REMAINS A/O X3, DROWSY AT TIMES, EASILY AROUSABLE. GENERALIZED WEAKNESS THROUGHOUT BUT CONTINUES TO MOVE ALL EXTREMITIES SPONTANEOUSLY AND TO COMMAND. REMAINS A-FIB ON MONITOR, BP NORMOTENSIVE, PULSES IN BLE REMAIN THREADY BUT PALPABLE. BLE CONTINUES TO BE RED/PURPLE WITH TOES BEING DEEP PURPLES AND DELAYED CAP REFILL. BLE MOTTLED TO GROIN. BUE BEGINNIG TO BE MOTTLED IN PLACES. CONTINUES ON BIPAP IN AVAP SETTING. TOLERATING WELL. NO BM THIS SHIFT, BS HYPOACTIVE. UOP 3950 FOR THIS SHIFT, FLUID BALANCE -3550 FOR THIS 12 HRS, -4429 FOR PAST 24 HOURS. NO NEW OR WORSENING SKIN ISSUES. PIV X1 REMOVED, NEW PIV PLACED. ALL OTHER LINES REMAIN INTACT AND PATENT. ROSALIO VIDALES RN
[2016-05-27 05:28] LABS: BASOPHIL % 0.2 %; EOSINOPHIL # 0.1 K/uL (0.0-0.5); EOSINOPHIL % 1.1 %; HEMATOCRIT 47.9 % (33.0-46.0); HEMOGLOBIN 13.6 g/dL (10.0-15.0); IMMATURE GRANULOCYTE % 0.4 %; LYMPHOCYTE # 0.7 K/uL (0.8-4.0); LYMPHOCYTE % 16.2 %; MCH 26.9 pg (27.0-34.0); MCHC 28.4 gm/dL (32.0-36.5); MCV 94.9 fl (83.0-98.0); MONOCYTE # 0.6 K/uL (0.0-1.0); MONOCYTE % 13.3 %; MPV 11.6 fl (9.4-12.4); NEUTROPHIL # (ANC) 3.1 K/uL (1.8-7.8); NEUTROPHIL % 68.8 %; NRBC % 0 /100WBC (0-0.00); PLATELET COUNT 187 K/uL (150-450); RBC 5.05 M/uL (3.50-5.50); RDW-CV 16.1 % (11.9-14.6); WBC 4.5 K/uL (4.0-11.0)
[2016-05-27 05:44] LABS: CALCIUM 8.1 mg/dL (8.5-10.5); CREATININE 1.7 mg/dL (0.5-1.1); TOTAL BILIRUBIN 1.5 mg/dL (0.0-1.5); TOTAL PROTEIN 6.1 g/dL (6.0-8.4)
[2016-05-27 05:45] LABS: ANION GAP 11.1 (10.0-19.0); POTASSIUM 4.1 mMol/L (3.7-5.1)
[2016-05-27 09:48] LABS: BICARBONATE 44.6 mmol/L (18.0-23.0); PCO2 72 mmHg (35-45); PO2 124 mmHg (80-90)
--- NOTE | 2016-05-27 16:18 | NUR ---
PT A/OX3, C/O MILD NUMBNESS TO TOES BUT IMPROVED DAY WENT ON. COLOR TO BLE MORE RED AND CELLULITIS MORE DX AT THIS POINT WITH ABX CHANGED. REPEAT ABG'S THIS AM WITH PCO2 OF 72 AND ON 3LNC TOLERATED AND BIPAP TO BE WORN AT NOC AND PRN. SATS UPPER 90'S, LS C/D AND SLIGHT WHEEZES EXP AT TIMES. VSS, AFEBRILE, PULSES 1+ DISTALLY, AFIB WITH CONTROLLED RATED 70-100'S, WITH 2-3+ PITTING DEPENDENT EDEMA. LASIX CHANGED TO Q8H AND KITCHEN WITH ADEQ UOP, PT +55 FOR SHIFT. NO BM, BS HYPO, ADEQ INTAKE AND DENIES PAIN AND N/V AND H/A.
[2016-05-27 17:46] LABS: INR - (THERAPEUTIC) 2.1 (0.9-1.1); PROTIME 23.3 SECONDS (9.6-11.1)
[2016-05-27 19:34] LABS: CALCIUM 7.5 mg/dL (8.5-10.5); CREATININE 1.7 mg/dL (0.5-1.1)
[2016-05-28 05:24] LABS: BASOPHIL % 0.4 %; EOSINOPHIL # 0.1 K/uL (0.0-0.5); EOSINOPHIL % 1.5 %; HEMATOCRIT 43.2 % (33.0-46.0); HEMOGLOBIN 12.6 g/dL (10.0-15.0); IMMATURE GRANULOCYTE % 0.4 %; LYMPHOCYTE # 0.9 K/uL (0.8-4.0); LYMPHOCYTE % 19.7 %; MCHC 29.2 gm/dL (32.0-36.5); MCV 92.5 fl (83.0-98.0); MONOCYTE # 0.7 K/uL (0.0-1.0); MONOCYTE % 15.5 %; MPV 11.2 fl (9.4-12.4); NEUTROPHIL % 62.5 %; NRBC % 0 /100WBC (0-0.00); PLATELET COUNT 161 K/uL (150-450); RBC 4.67 M/uL (3.50-5.50); RDW-CV 15.8 % (11.9-14.6); WBC 4.8 K/uL (4.0-11.0)
[2016-05-28 05:34] LABS: INR - (THERAPEUTIC) 1.7 (0.9-1.1); PROTIME 18.5 SECONDS (9.6-11.1)
[2016-05-28 05:36] LABS: ALBUMIN 2.8 gm/dL (3.5-5.0); CALCIUM 7.8 mg/dL (8.5-10.5); CREATININE 1.4 mg/dL (0.5-1.1); POTASSIUM 3.6 mMol/L (3.7-5.1)
[2016-05-28 05:37] LABS: ANION GAP 9.6 (10.0-19.0)
--- NOTE | 2016-05-28 06:41 | NUR ---
PT RESTING THROUGHOUT SHIFT. REMAINS A/O X3. COLOR IN BLE CONTINUES TO BE RED, NO MOTTLING, REDNESS GOES TO UPPER CALF REGION. PULSES IMPROVING BUT STILL THREADY IN BLE. TMAX 99.5. ON BIPAP WITH AVAP MAJORITY OF SHIFT WHILE SLEEPING. LUNGS CLEAR/DIMINISHED TO AUSCULTATION. BS HYPOACTIVE, NO BM THIS SHIFT. UOP GOOD, 2825 FOR SHIFT. TOTAL FLUID BALANCE FOR SHIFT -2465, PAST 24 HR -2410. NO NEW OR WORSENING SKIN ISSUES. ALL LINES REMAINS INTACT AND PATENT. ROSALIO VIDALES RN
--- NOTE | 2016-05-28 12:51 | NUR ---
Introduced self and role of care management to patient. She lives by herself in [place]. She states that she is able to do all her own ADL's. She has "lots" of friends that assist if needed. She states she does not have any children that live close enough to assist her although her son and his family will be moving to [place] in a few months. 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 She denies any needs at this time. Will continue to follow.
--- NOTE | 2016-05-28 18:54 | NUR ---
Significant Event: TRANSFERRED FROM ICU, ASSUMED CARES @ 1400. A/O X3. UP WITH 1 ASSIST AND GB. PIV TO RIGHT WRIST SL'D. DENIES PAIN. O2 @ 3L NC. BIPAP AT NOC. BILATERAL LOWER EXTREMITY EDEMA, DEPENDANT, SORE TO LEFT [place], UNNA BOOT APPLIED BY WOC. KITCHEN PATENT WITH 1500 ML UOP. PLEASANT AND COOPERATIVE WITH CARES. Follow up:CONTINUE TO MONITOR.
--- NOTE | 2016-05-29 04:30 | NUR ---
Significant Event: A/O, SBP 100-110s, HR in afib rates 90-100s, Metoprolol held for lower SBP, afebrile, 3L O2, bipap at hs, patient fights the bipap and takes off throughout night, verduzco-2575 ml out, 1 assist transfers, nystatin powder to folds, denies pain Follow up: continue plan of care
[2016-05-29 05:16] LABS: BASOPHIL % 0.6 %; EOSINOPHIL # 0.1 K/uL (0.0-0.5); EOSINOPHIL % 2.7 %; HEMATOCRIT 43.3 % (33.0-46.0); IMMATURE GRANULOCYTE % 0.2 %; LYMPHOCYTE # 1.1 K/uL (0.8-4.0); LYMPHOCYTE % 21.8 %; MCH 27.3 pg (27.0-34.0); MCV 90.8 fl (83.0-98.0); MONOCYTE # 0.8 K/uL (0.0-1.0); MPV 11.2 fl (9.4-12.4); NEUTROPHIL # (ANC) 2.8 K/uL (1.8-7.8); NEUTROPHIL % 58.7 %; NRBC % 0 /100WBC (0-0.00); PLATELET COUNT 161 K/uL (150-450); RBC 4.77 M/uL (3.50-5.50); RDW-CV 15.5 % (11.9-14.6); WBC 4.8 K/uL (4.0-11.0)
[2016-05-29 05:39] LABS: ALBUMIN 2.8 gm/dL (3.5-5.0); CALCIUM 7.7 mg/dL (8.5-10.5); CREATININE 1.3 mg/dL (0.5-1.1); MAGNESIUM 1.6 mg/dL (1.3-2.6); PHOSPHORUS 2.5 mg/dL (2.5-4.9); POTASSIUM 3.3 mMol/L (3.7-5.1)
[2016-05-29 05:52] LABS: ANION GAP 6.3 (10.0-19.0)
--- NOTE | 2016-05-29 11:13 | NUR ---
PT SCREENED D/T LOS. EST NEEDS: [id number] KCALS, 110-137 GM PROTEIN, 1 ML/KCAL FLUIDS. ORAL INTAKE ADEQUATE. NO NUTRITION-RELATED DIAGNOSIS IDENTIFIED.
[2016-05-29 15:02] LABS: INR - (THERAPEUTIC) 1.6 (0.9-1.1); PROTIME 17.7 SECONDS (9.6-11.1)
--- NOTE | 2016-05-29 15:24 | NUR ---
Social visit with patient today to discuss discharge plans. We discussed that she will most likely need a skilled stay before going back home. She would like a referral made to [facility]. I called and left a message for Radha MOSQUEDA coordinator. Referral faxed.
--- NOTE | 2016-05-29 16:52 | NUR ---
Significant Event: A/OX3. AT CHEST X-RAY [id number]. SLEPT OFTEN. HAD SEVERAL VISITORS THIS PM. 3L O2 NC, BIPAP AT NIGHT, LUNGS DIM IN BASES. BS ACTIVE, NO BM THIS SHIFT. REPLACED 2GM IV MG AND 40 MEQ OF KCL PO X2. IV TO R) WRIST, C/O PAIN AT SITE W/ MAG SULFATE, SLOWED INFUSION AND WARM BLANKET, NOW NO C/O PAIN. KITCHEN PATENT, 1850 OUP. HR 80-104, AFIB. AFEBRILE. 1 ASSIST W/ GB & WALKER. NYSTATIN TO FOLDS. PLEASANT AND COOPERATIVE. CHANGED TO FULL CODE STATUS. Follow up:
--- NOTE | 2016-05-30 04:58 | NUR ---
Significant Event: A/O, SBP 99-130s, HR in afib 60-80s, 3L O2, bipap at hs, did not fight the bipap as badly tonight, verduzco-1225 ml out, unna boot to LLE, washed and powdered under breasts groin and abdomen, patient had large BM Follow up: continue plan of care, working on placement
[2016-05-30 05:05] LABS: INR - (THERAPEUTIC) 1.7 (0.9-1.1); PROTIME 18.1 SECONDS (9.6-11.1)
[2016-05-30 05:16] LABS: CREATININE 1.2 mg/dL (0.5-1.1)
--- NOTE | 2016-05-30 12:54 | NUR ---
Received a call from Radha MOSQUEDA coordinator at [place]. She states that at this time they don't have any swingbeds available. Dr Cárdenas is out today she will give information to him tomorrow and call me on Saturday. I updated Dr Ji and she gave on order for a rehab consult. I updated patient. Will continue to follow.
[2016-05-30 17:07] LABS: BICARBONATE 46.9 mmol/L (18.0-23.0); PCO2 63 mmHg (35-45)
[2016-05-30 17:08] LABS: PO2 67 mmHg (80-90)
--- NOTE | 2016-05-30 17:11 | NUR ---
Significant Event: A/OX3. HR 80'S-90'S, AFIB. SBP 90'S-140'S, LOPRESSOR HELD 95/58. LUNGS CLEAR/DIM, 2L NC O2, BIPAP AT NIGHT. HAD SHOWER THIS AM, TOLERATED WELL W/ 1A GB AND WALKER. AMBULATED IN HALLS WITH PT. IV ALBUMIN X1, WILL INITIATE LASIX DRIP AFTER ALBUMIN INFUSION. IV SITE R) WRIST. NO C/O PAIN. Follow up: CM WORKING ON PLACEMENT.
[2016-05-31 04:20] LABS: ALBUMIN 3.2 gm/dL (3.5-5.0); ANION GAP 9.1 (10.0-19.0); CALCIUM 8.1 mg/dL (8.5-10.5); CREATININE 1.2 mg/dL (0.5-1.1); MAGNESIUM 2.3 mg/dL (1.3-2.6); PHOSPHORUS 2.9 mg/dL (2.5-4.9); POTASSIUM 4.1 mMol/L (3.7-5.1)
--- NOTE | 2016-05-31 04:52 | NUR ---
A/O. HR 90s. SBP 110-140s. AFEBRILE. 2L O2 DURING DAY. BIPAP AT NIGHT. LASIX DRIP AT 10MG/HR. KITCHEN INTACT 2900ML UOP. 1A WALKER FROM CHAIR TO BED. DENIES PAIN. NO BM.
--- NOTE | 2016-05-31 11:16 | NUR ---
Introduced self and purpose of heart healthy education and care transitions. Calendar given, information reviewed, verbalized understanding. Hopes to go to [facility] bed on discharge from hospital. Says she knows why she's here, that she had not been taking her lasix, or watching her sodium intake. Has not been weighing self and home, but will begin. Knew she was retaining fluid and hoped it would just go away on it's own.
--- NOTE | 2016-05-31 15:55 | NUR ---
Significant Event: ALERT AND ORIENTED AMBULATIED IN KNAPP TWICE TODAY. UP IN CHAIR MAJORITY OF DAY. DENIES PAIN. CONTINUES ON IV LASIX. ORTHOS IN AM. BMP IN AM. COUMADIN ADJUSTED PER PHARMACY. UNABOOTS CHANGED TO LEFT LEG BY WOUND CARE Follow up:
[2016-05-31 17:06] LABS: ANION GAP 11.3 (10.0-19.0); CALCIUM 8.7 mg/dL (8.5-10.5); CREATININE 1.5 mg/dL (0.5-1.1); MAGNESIUM 2.3 mg/dL (1.3-2.6); POTASSIUM 4.3 mMol/L (3.7-5.1)
[2016-06-01 04:23] LABS: ALBUMIN 3.3 gm/dL (3.5-5.0); ANION GAP 12.3 (10.0-19.0); CALCIUM 8.6 mg/dL (8.5-10.5); CREATININE 1.4 mg/dL (0.5-1.1); MAGNESIUM 2.5 mg/dL (1.3-2.6); PHOSPHORUS 3.4 mg/dL (2.5-4.9); POTASSIUM 4.3 mMol/L (3.7-5.1)
--- NOTE | 2016-06-01 05:21 | NUR ---
A/O. HR 70-90s. SBP 110-160s. AFEBRILE. 1L O2 NC DURING DAY. BIPAP AT NIGHT. LASIX GTT 10MG/HR. KITCHEN INTACT 1775ML UOP. DENIES PAIN. 1A TO BATHROOM/CHAIR. ALARM AT ALL TIMES. LG BM FOR DAY SHIFT CREDIT.
[2016-06-01 08:38] LABS: INR - (THERAPEUTIC) 2.5 (0.9-1.1); PROTIME 28.2 SECONDS (9.6-11.1)
--- NOTE | 2016-06-01 13:05 | NUR ---
Updated patient and Dr Ji that patient can go to the [facility] on discharge.
--- NOTE | 2016-06-01 16:26 | NUR ---
Significant Event: AMBULATED IN KNAPP. LASIX DRIP OFF AND LASIX IV BID STARTED. KITCHEN IN PLACE. PLAN FOR ABG WHILE ON ROOM AIR ON SATURDAY AND JUAN JOSE SCAN ON SATURDAY. BMP DAILY X3 DAYS. DENIES PAIN 2 BM THIS SHIFT. Follow up:
[2016-06-02 03:55] LABS: ANION GAP 15.4 (10.0-19.0); CREATININE 1.4 mg/dL (0.5-1.1)
[2016-06-02 03:56] LABS: POTASSIUM 4.4 mMol/L (3.7-5.1)
[2016-06-02 04:10] LABS: INR - (THERAPEUTIC) 3.1 (0.9-1.1); PROTIME 35.7 SECONDS (9.6-11.1)
--- NOTE | 2016-06-02 07:09 | NUR ---
Significant Event: Patient is alert and oriented x 3. VSS on Bipap. On room air during the day. HRs in the 80s-90s. SBPs in the 100s-150s. Afebrile. Up with 1 assist, walker, and gaitbelt. Sandra boot to left lower extremity. Robles intact with 650 mls out this shift. Left wrist IV, saline locked. Denies any pain. Patient is pleasant and cooperative with cares. Follow up: Kezia-scan and ABG on room air on Saturday
--- NOTE | 2016-06-02 16:25 | NUR ---
Significant Event: PT A&O x3. VSS, on room air. Sandra boot patent to L)leg, slit cut in top r/t PT c/o being tight and red line: woc notified and stated to cut slit in top. PT denies pain. Margaret patent. BM x2 this shift. Plan for lexiscan on Saturday. Follow up:
[2016-06-03 03:54] LABS: INR - (THERAPEUTIC) 3.9 (0.9-1.1); PROTIME 46.2 SECONDS (9.6-11.1)
[2016-06-03 04:00] LABS: ANION GAP 12.3 (10.0-19.0); CALCIUM 8.9 mg/dL (8.5-10.5); CREATININE 1.5 mg/dL (0.5-1.1); POTASSIUM 4.3 mMol/L (3.7-5.1)
[2016-06-03 04:20] LABS: MAGNESIUM 2.6 mg/dL (1.3-2.6)
--- NOTE | 2016-06-03 04:26 | NUR ---
Significant Event: A/OX3, VSS ON ROOM AIR DURING THE DAY, WEARS CPAP AT NIGHT. NO COMPLAINTS OF PAIN THIS SHIFT. REPOSITIONS SELF IN BED. PT. GETS UP 1 ASSIST WITH WALKER, GAIT BELT. UNNA BOOT INTACT TO LLE, DRAINAGE NOTED TO BACK OF DRESSING. KITCHEN INTACT WITH 700ml UOP. COOPERATIVE WITH CARES, SLEPT WELL THROUGHOUT THE NIGHT. Follow up: CONTINUE WITH POC.
--- NOTE | 2016-06-03 16:28 | NUR ---
Significant Event: Patient alert and oriented. Vital signs stable on room air. Up with 1 assist. Given tramadol and tylenol for complaints of pain in left lower extremity. Patient has walked to bathroom and has walked in hallway throughout the day. Unna boot to left lower extremite. Toes to bilateral feet are reddish/purple with good capillary refill. Fluid restriction of 1500mL started today. Patient will be NPO at midnight for lexiscan in the morning. Pleasant and cooperative with cares. Follow up:
[2016-06-04 03:38] LABS: BASOPHIL # 0.1 K/uL (0.0-0.2); BASOPHIL % 1.2 %; EOSINOPHIL # 0.2 K/uL (0.0-0.5); EOSINOPHIL % 3.6 %; HEMOGLOBIN 15.2 g/dL (10.0-15.0); IMMATURE GRANULOCYTE % 0.5 %; LYMPHOCYTE # 1.6 K/uL (0.8-4.0); LYMPHOCYTE % 37.4 %; MCH 27.3 pg (27.0-34.0); MCHC 30.4 gm/dL (32.0-36.5); MCV 89.9 fl (83.0-98.0); MONOCYTE # 0.6 K/uL (0.0-1.0); MONOCYTE % 13.3 %; MPV 12.4 fl (9.4-12.4); NEUTROPHIL # (ANC) 1.9 K/uL (1.8-7.8); NRBC % 0 /100WBC (0-0.00); PLATELET COUNT 174 K/uL (150-450); RBC 5.56 M/uL (3.50-5.50); RDW-CV 16.1 % (11.9-14.6); WBC 4.2 K/uL (4.0-11.0)
[2016-06-04 03:56] LABS: ANION GAP 13.1 (10.0-19.0); CALCIUM 8.7 mg/dL (8.5-10.5); CREATININE 1.6 mg/dL (0.5-1.1); POTASSIUM 4.1 mMol/L (3.7-5.1)
--- NOTE | 2016-06-04 05:00 | NUR ---
Significant Event: A/OX3, VSS ON RA DURING THE DAY, WEARS BIPAP AT NIGHT. PT. HAS BEEN NPO SINCE MIDNIGHT FOR ESAN TODAY. NO COMPLAINTS OF PAIN. LLE UNNA BOOT INTACT, SMALL AMOUNT OF DRAINAGE NOTED TO BACK OF LEG. PT. GETS UP 1 ASSIST WITH GAIT BELT & WALKER. SLEPT IN CHAIR ALL NIGHT, REPOSITIONED Q2HR. PT. SLEPT BETTER LAST NIGHT IN CHAIR. [facility] WILL TAKE PT. WHEN SHE'S READY. SLIV TO L)HAND. Follow up: [facility] TODAY.
[2016-06-04 05:49] LABS: BICARBONATE 37.5 mmol/L (18.0-23.0); PCO2 54 mmHg (35-45); PO2 64 mmHg (80-90)
[2016-06-04 09:55] LABS: INR - (THERAPEUTIC) 3.6 (0.9-1.1)
[2016-06-04 11:43] LABS: BICARBONATE 32.7 mmol/L (18.0-23.0); PCO2 54 mmHg (35-45); PO2 64 mmHg (80-90)
--- NOTE | 2016-06-04 13:04 | NUR ---
PT HAD LEXISCAN MPI THIS AM. PT WAS FATIGUED AND REFUSED SPEECH THERAPY THIS DATE. ST WILL F/U IN AM.
--- NOTE | 2016-06-04 14:56 | NUR ---
Spoke with Radha MOSQUEDA coordinator at [place]. She states that at this time they can not accomidate someone who need BIPAP or CPAP d/t their machine being broken and in for repairs. They can manage patients Unnaboots. I updated Dr Ji. I did call and ask Joselyn RAJAN on [facility] to look at patient. Will continue to follow.
--- NOTE | 2016-06-04 15:18 | NUR ---
Significant Event:Oriented x 3. Lethargic, arouses slowly. Needs encouraged to change activity. Ambulates with 1 assist, wheeled walker and gait belt. Slept in recliner last night and reports she often sleeps in her recliner at home. Left for Lexiscan at 0630 and was more fatigued after second set of pictures. Patient was moaning and angel hands to the mid forearm were blue, unable to get a body temp, skin cold. O2 satss >90% as assessed per forehead probe. Patient refusing lunch, had milk and crackers for breakfast. Blood sugar was 73, juice [address] Ji called and STAT ABG drawn. Dr Ji here to see. Patient encourged to NOT spend prolonged time in chair by [facility] and Dr Ji because blood return in femoral arteris are pinched off. Angel Feet, especially the right lower turns dark purple when legs hang down. Patient warmed up with blankets and reclined in bed on her side, is feeling much better. Tolerating PO fluids and nutrition. 2 SMall soft BM's, refused Miralax. REdness and breakdown under right breast. Redness in all skin folds red and mycostatin powder applied. Trend oximetery study tonight, stop Bipap and change to CPap. WOC nurse changed Samuel lacy. Follow up:Kelly MOSQUEDA tomorrow? Stress test results?
[2016-06-05 03:40] LABS: CREATININE 1.4 mg/dL (0.5-1.1); PHOSPHORUS 4.2 mg/dL (2.5-4.9)
[2016-06-05 03:42] LABS: ANION GAP 13.2 (10.0-19.0); MAGNESIUM 2.7 mg/dL (1.3-2.6); POTASSIUM 4.2 mMol/L (3.7-5.1)
--- NOTE | 2016-06-05 04:57 | NUR ---
Significant Event:Patient A/Ox3 but more drowsy throughout the shift, but answers questions appropriately. Afebrile. RA while awake and Bipap at HS. Robles to DD 1175ml uop. Repositioned Q2h. Unnaboot to L)LE. PIV to L)hand saline locked. Follow up:[facility] vs [facility] d/t bipap machine down for maintance at [facility]. AM ABG being drawn as this note is written.
[2016-06-05 05:15] LABS: PCO2 54 mmHg (35-45); PO2 59 mmHg (80-90)
[2016-06-05 11:55] LABS: PROTIME 32.3 SECONDS (9.6-11.1)
[2016-06-05 11:57] LABS: INR - (THERAPEUTIC) 2.8 (0.9-1.1)
--- NOTE | 2016-06-05 12:06 | NUR ---
Spoke with Radha SW[facility] coordinator at [place] this morning. they are still waiting to get their BIPAP machine back from repairs. She states that they are wanting to know what the discharge plan from the SWB nees to be for patients need of BIPAP. I explained that she would most likely need a sleep study. I called and the next available opening at [facility] is July 08. I relayed this informatin to Radha. She states that Dr Alegre is wanting to know what needs to be done after patients SWB stay to [facility] to get her home and with BIPAP. I did update Dr Ji.
--- NOTE | 2016-06-05 16:33 | NUR ---
Patient A/O X3. VSS. Patient up to the bathroom, BM X2. Miralax not given per patients request. Patient up to shower, tolerated well. Catheter removed at 1530. Intake is at 480, is on 1,500 ml fluid restriction. Clear, yellow urine. Output was 1,400 mls. R) Breast is red and shearing. Patient leaving tomorrow to [facility] Bed at 1130.
[2016-06-06 03:47] LABS: PROTIME 34.9 SECONDS (9.6-11.1)
[2016-06-06 03:50] LABS: ALBUMIN 3.2 gm/dL (3.5-5.0); ANION GAP 12.1 (10.0-19.0); CALCIUM 8.7 mg/dL (8.5-10.5); CREATININE 1.5 mg/dL (0.5-1.1); MAGNESIUM 2.6 mg/dL (1.3-2.6); PHOSPHORUS 4.1 mg/dL (2.5-4.9); POTASSIUM 4.1 mMol/L (3.7-5.1)
--- NOTE | 2016-06-06 04:23 | NUR ---
Significant Event: Patient in bed most of shift. Did sit at bedside x 2 and up to bathroom to void x 3. Voiding without issue. Patient denies feeling retention. UOP 875 ml. [address] boot in place without issue, continues to be C/D/I. No incontinence noted. Edema present in BLE. No shortness of breath noted. RA while awake, 2L O2 via NC @ HS. Discharge paperwirk and dictation done by Dr Ji, Per Her Dr Dumont to round this AM to allow for early dismissal if all goes as planned. Follow up: DC to [facility] this AM
--- NOTE | 2016-06-06 11:26 | NUR ---
VSS. Patient had a Small BM this AM. Voided 100 mls. She is on a strict fluid restriction of 1,750 ml's. She is currently at 490 ml's and has 250 left in her water bottle of lemonade. Patient transfers with 1 Assist using a gaitbelt and walker. She has some redness and excoriated underneath both breasts. Unna Boot is C/D/I on Left Lower Leg. A family member is here to transport patient. RN to call [facility] staff with report.
--- NOTE | 2016-06-06 11:27 | NUR ---
Spoke with Radha at [facility]. They are ready for patient's admission today. Dr Ji dod speak with Dr Alegre for doc to doc report yesterday afternoon. Orders faxed.
--- NOTE | 2016-06-06 12:12 | NUR ---
PATIENT TRANSPORTED TO FRONT OF [facility] ENTR[facility] VIA WHEELCHAIR ACCOMPANIED BY STUDENT NURSE, FAMILY FOR TRANSPORT, AND BELONGINGS AT 1140. TRANSFER PACKET PROVIDED TO FAMILY MEMBER FOR HAND-OFF TO [facility].
== END 2016-06-06 11:45 | disposition swing bed (61) | DRG 291 ==
LOC: GPCU 15:38 → GICU 15:38 → GPCU 15:38 → GICU 17:00 → GPCU 05-28 13:53
PROVIDERS: Anesthesiology Critical Care Medicine; Internal Medicine; Internal Medicine Interventional Cardiology; ADMIT Internal Medicine
DX: I50.43 Acute on chronic combined systolic (congestive) and diastolic (congestive) heart failure (principal); J96.01 Acute respiratory failure with hypoxia; N17.9 Acute kidney failure, unspecified; I27.2 Other secondary pulmonary hypertension; L03.115 Cellulitis of right lower limb; I42.9 Cardiomyopathy, unspecified; I48.2 Chronic atrial fibrillation; E66.2 Morbid (severe) obesity with alveolar hypoventilation; I12.9 Hypertensive chronic kidney disease with stage 1 through stage 4 chronic kidney disease, or unspecified chronic kidney disease; B37.2 Candidiasis of skin and nail; J96.22 Acute and chronic respiratory failure with hypercapnia; L03.116 Cellulitis of left lower limb; L97.929 Non-pressure chronic ulcer of unspecified part of left lower leg with unspecified severity; Z68.43 Body mass index [BMI] 50.0-59.9, adult; Z79.01 Long term (current) use of anticoagulants; I25.10 Atherosclerotic heart disease of native coronary artery without angina pectoris; I25.2 Old myocardial infarction; N18.3 Chronic kidney disease, stage 3 (moderate); Z86.718 Personal history of other venous thrombosis and embolism; E78.5 Hyperlipidemia, unspecified; I34.0 Nonrheumatic mitral (valve) insufficiency; Z66 Do not resuscitate; Z23 Encounter for immunization; I87.2 Venous insufficiency (chronic) (peripheral); T46.0X5A Adverse effect of cardiac-stimulant glycosides and drugs of similar action, initial encounter; E87.6 Hypokalemia
CPT/HCPCS: A9500; C9113; J0690; J0692; J1160; J1162; J1940; J2785; J3475; J7040; J7050; J7060; P9047